=== PATIENT | male | born 1985 | race African-American/Black ===

== ENCOUNTER → 2017-02-10 | Outpatient (CLI) | payer OTHER ==
--- NOTE | 2017-02-10 15:38 | REP ---
ABDOMINAL SERIES: Supine and erect views of the abdomen demonstrate no free air and no evidence for bowel obstruction. No dilated small bowel loops are seen. No abnormal calcifications are seen. An accompanying view of the chest demonstrates no acute infiltrate. The heart is normal in size and the mediastinal silhouette is unremarkable. IMPRESSION: Negative abdominal series. Signed by Chaparro Olivas MD 02/10/2017 04:14 P
== END ==
LOC: M LRY 14:37
PROVIDERS: ATTEND Nurse Practitioner Family
DX: R10.9 Unspecified abdominal pain (principal)

== ENCOUNTER → 2017-02-10 | Outpatient (REF) | payer OTHER | LOC: M SFHCLERA 14:13 | PROVIDERS: ATTEND Nurse Practitioner Family | DX: R10.9 Unspecified abdominal pain (principal) ==

== ENCOUNTER → 2017-05-10 | Outpatient (REF) | payer OTHER ==
[2017-05-10 12:16] LABS: SEMEN APPEARANCE OPAQUE (OPAQUE); SEMEN VISCOSITY LIQUID (LIQUID); SEMEN VOLUME 2.6 ml (4.0-5.0)
[2017-05-10 12:17] LABS: % NORMAL FORMS 8 % (>=4); IMMOTILITY 55 %; NON PROGRESSIVE MOTILITY (c) 10 %; PROGRESSIVE MOTILITY (a) 35 % (>=32); SPERM CONCENTRATION 42.1 M/ml (>=15.0); SPERM# 109.4 M/Ejac (>=39); TOTAL FUNCTIONAL 7.1 M/Ejac.; TOTAL MOTILITY 45 % (>=40); TOTAL PROGRESSIVE SPERM 37.9 M/Ejac.; WBC CONCENTRATION <=1 M/ml (<=1 M/ml)
== END ==
LOC: M LAB REF 11:56
DX: N46.8 Other male infertility (principal)

== ENCOUNTER 2018-10-05 16:26 | Emergency (ER) | payer OTHER ==
[~2018-10-05] VITALS: Ht 172.7 cm; Wt 86.4 kg
[2018-10-05] MEDS ORDERED: DERMABOND TOPICAL SKIN ADHESIVE TOP ONE (17:15)
[2018-10-05 17:39] VITALS: BP 135/84
== END 2018-10-05 17:42 | disposition home or self-care (01) ==
LOC: M ED 16:26
DX: S61.112A Laceration without foreign body of left thumb with damage to nail, initial encounter (principal); W26.0XXA Contact with knife, initial encounter; Y92.89 Other specified places as the place of occurrence of the external cause; Y99.0 Civilian activity done for income or pay